=== PATIENT | female | born 1980 | race Caucasian/White ===

== ENCOUNTER 2021-02-08 05:08 | Emergency (ER) | payer MEDICAID, OTHER ==
[~2021-02-08] VITALS: Ht 175.3 cm; Wt 68.2 kg
[~2021-02-08 05:08] MED LIST: HYDR-4072 PO
[2021-02-08 05:11] VITALS: BP 141/97
== END 2021-02-08 05:27 | disposition left against medical advice (07) ==
LOC: EMS 05:10
DX: L02.91 Cutaneous abscess, unspecified (principal); Z53.21 Procedure and treatment not carried out due to patient leaving prior to being seen by health care provider

== ENCOUNTER 2021-03-08 15:14 | Emergency (ER) | payer OTHER ==
[~2021-03-08] VITALS: Ht 172.7 cm; Wt 84.1 kg
[2021-03-08] MEDS ORDERED: ONDANSETRON HCL 4 MG/2 ML VIAL IVP ONE (15:30)
[2021-03-08 19:00] VITALS: BP 155/101
== END 2021-03-09 07:01 | disposition home or self-care (01) ==
LOC: EMS 15:14
DX: T40.1X1A Poisoning by heroin, accidental (unintentional), initial encounter (principal); L02.416 Cutaneous abscess of left lower limb; Z87.891 Personal history of nicotine dependence; Z90.49 Acquired absence of other specified parts of digestive tract; Y92.89 Other specified places as the place of occurrence of the external cause
CPT/HCPCS: 96374; 99291; J2405